=== PATIENT | male | born 1980 | race African-American/Black ===

== ENCOUNTER 2017-09-25 21:11 | Emergency (ER) | payer OTHER ==
--- NOTE | 2017-09-25 22:22 | ED ---
Lower Extremity - HPI Summary HPI Summary: 36-year-old male presents with left Achilles pain for the past 4 days. He states he sustained the injury playing basketball. He pushed over his toe and went for a jump when he felt a pop in his Achilles. He felt immediate weakness. He states he is not able to walk on his toes. No previous injury to the area. Did not roll or twisted his ankle. No numbness or tingling. Is able to bear weight but has to walk on his heels. No medical conditions. - History of Current Complaint Chief Complaint: EDExtremityLower Stated Complaint: LT ANKLE INJURY Time Seen by Provider: 09/25/17 21:48 Pain Intensity: 6 - Allergies/Home Medications Allergies/Adverse Reactions: Allergies Allergy/AdvReac Type Severity Reaction Status Date / Time No Known Allergies Allergy Verified 09/25/17 21:27 Home Medications: Home Medications NK [No Home Medications Reported] 09/25/17 [History Confirmed 09/25/17] PMH/Surg Hx/FS Hx/Imm Hx Endocrine/Hematology History: Denies: Hx Anticoagulant Therapy Cardiovascular History: Denies: Hx Myocardial Infarction Infectious Disease History: No Infectious Disease History: Denies: Traveled Outside the [place] in Last 30 Days - Family History Known Family History: Positive: Hypertension - Social History Alcohol Use: Occasionally Substance Use Type: Reports: None Smoking Status (MU): Never Smoked Tobacco Review of Systems Negative: Fever Negative: Chest Pain Negative: Shortness Of Breath Positive: Myalgia - left achilles pain All Other Systems Reviewed And Are Negative: Yes Physical Exam Triage Information Reviewed: Yes Vital Signs On Initial Exam: Initial Vitals Temp Pulse Resp BP Pulse Ox 97.9 F 65 18 137/75 97 09/25/17 21:23 09/25/17 21:23 09/25/17 21:23 09/25/17 21:23 09/25/17 21:23 Vital Signs Reviewed: Yes Appearance: Positive: Well-Appearing Skin: Positive: Warm, Dry Head/Face: Positive: Normal Head/Face Inspection Eyes: Positive: Normal, Conjunctiva Clear ENT: Positive: Pharynx normal Respiratory/Lung Sounds: Positive: Clear to Auscultation, Breath Sounds Present Cardiovascular: Positive: Normal, RRR Musculoskeletal: Positive: Limited @ - plantar flexion, Other - tenderness left achilles, good pulses, capillary refill<2 secs, minimial movement with phelps squeeze Neurological: Positive: Normal Psychiatric: Positive: Normal Diagnostics - Vital Signs Vital Signs Temp Pulse Resp BP Pulse Ox 09/25/17 21:23 97.9 F 65 18 137/75 97 - Laboratory Lab Statement: Any lab studies that have been ordered have been reviewed, and results considered in the medical decision making process. - Radiology ankle Xray Interpretation: No Acute Changes Radiology Interpretation Completed By: Radiologist Lower Extremity Course/Dx - Course Course Of Treatment: 36-year-old male presents with left Achilles pain for the past 4 days. He states he sustained the injury playing basketball. He pushed over his toe and went for a jump when he felt a pop in his Achilles. He felt immediate weakness. He states he is not able to walk on his toes. No previous injury to the area. Did not roll or twisted his ankle. No numbness or tingling. Is able to bear weight but has to walk on his heels. No medical conditions. On exam has tenderness over left Achilles. Neurovascular intact. Minimal movement with Phelps's squeeze. X-ray normal. Place in a posterior walking splint in plantar flexion. We'll have follow-up with orthopedic. We' ll treat conservatively with rice. Patient understands agrees with plan. - Diagnoses Differential Diagnosis/HQI/PQRI: Positive: Fracture (Closed), Sprain, Strain Provider Diagnoses: Achilles tendon injury Discharge - Sign-Out/Discharge Documenting (check all that apply): Discharge/Admit/Transfer - Discharge Plan Condition: Good Disposition: HOME Patient Education Materials: Achilles Tendon Rupture (ED) Referrals: Di Llanos MD [Primary Care Provider] - Additional Instructions: Stay off ankle as much as possible Ice, elevate Ibuprofen or tyenlol every 6 hours for pain Follow up with ortho Return to ED if develop or any new or worsening symptoms - Billing Disposition and Condition Condition: GOOD Disposition: HOME
[2017-09-25 22:43] VITALS: BP 136/75
--- NOTE | 2017-09-26 07:31 | RAD ---
HISTORY: Left ankle injury, pain COMPARISONS: None VIEWS: 3, Frontal, lateral, and oblique views of the left ankle FINDINGS: BONE DENSITY: Normal. BONES: There is no displaced fracture. JOINTS: There is no arthropathy. ALIGNMENT: There is no dislocation. SOFT TISSUES: Unremarkable. OTHER FINDINGS: None. IMPRESSION: NO ACUTE OSSEOUS INJURY. IF SYMPTOMS PERSIST, RECOMMEND REPEAT IMAGING.
== END 2017-09-25 22:42 | disposition home or self-care (01) ==
LOC: ED 21:11
DX: S86.002A Unspecified injury of left Achilles tendon, initial encounter (principal); X50.9XXA Other and unspecified overexertion or strenuous movements or postures, initial encounter; Y93.67 Activity, basketball; Y92.9 Unspecified place or not applicable
CPT/HCPCS: 99282